=== PATIENT | female | born 1990 | race African-American/Black ===

== ENCOUNTER 2019-05-07 11:42 | Emergency (ER) | payer SELFPAY ==
[~2019-05-07] VITALS: Ht 175.3 cm; Wt 100.0 kg
[2019-05-07 11:49] VITALS: BP 113/62
== END 2019-05-07 12:35 | disposition left against medical advice (07) ==
LOC: ER 12:12
DX: Z53.21 Procedure and treatment not carried out due to patient leaving prior to being seen by health care provider (principal)